=== PATIENT | female | born 1935 | race Caucasian/White ===

== ENCOUNTER 2019-01-24 18:15 | Inpatient (IN) | payer MEDICARE, MEDICAID ==
[~2019-01-24] VITALS: Ht 157.5 cm; Wt 109.0 kg
[~2019-01-24 18:15] MED LIST: CARV-50 PO; FURO-150 PO; POTA99TA15 PO
[2019-01-24 20:16] LABS: BASOPHILS # (AUTO) 0.1 X10'3 (0-0.2); BASOPHILS % (AUTO) 0.4 % (0-1); EOSINOPHILS % (AUTO) 0.1 % (0-6); HEMOGLOBIN 16.1 g/dl (12.0-16.0); LYMPHOCYTES # (AUTO) 0.7 X10'3 (1.1-4.8); MEAN CORPUSCULAR HGB CONC 33.6 g/dL (33.0-36.5); MEAN PLATELET VOLUME 10.6 FL (7.4-10.4); MONOCYTES # (AUTO) 1.7 X10'3 (0-0.9); MONOCYTES % (AUTO) 9.9 % (2-12); NEUTROPHILS # (AUTO) 14.4 X10'3 (1.8-7.7); NEUTROPHILS % (AUTO) 85.6 % (42-75); PLATELET COUNT 148 X10'3 (140-440); RED BLOOD COUNT 5.05 X10'6 (4.20-5.60); RED CELL DISTRIBUTION WIDTH 14.6 % (11.5-14.5); WHITE BLOOD COUNT 16.8 X10'3 (4.5-11.0)
[2019-01-24 20:35] LABS: ALANINE AMINOTRANSFERASE 25 U/L (12-78); ALBUMIN 3.2 G/DL (3.4-5.0); ALBUMIN/GLOBULIN RATIO 0.9 (1.1-1.5); ALKALINE PHOSPHATASE 86 IU/L (46-116); ANION GAP 8 (8-16); ASPARTATE AMINO TRANSFERASE 21 U/L (10-37); BLOOD UREA NITROGEN 32 MG/DL (7-18); BUN/CREATININE RATIO 29.4 (6.6-38.0); CALCIUM 9.3 MG/DL (8.5-10.1); CHLORIDE 107 MMOL/L (99-107); CREATININE 1.09 MG/DL (0.40-0.90); GLUCOSE 137 MG/DL (70-104); POTASSIUM 3.9 MMOL/L (3.5-5.1); SODIUM 143 MMOL/L (135-145); TOTAL CARBON DIOXIDE 28.3 MMOL/L (24-32); TOTAL PROTEIN 6.8 G/DL (6.4-8.2); eGFR 48 ML/MIN
[2019-01-24 20:37] LABS: CREATINE KINASE 368 U/L (26-192); MAGNESIUM 1.9 MG/DL (1.5-2.4); PHOSPHORUS 2.5 MG/DL (2.3-4.5)
[2019-01-24 20:42] LABS: CLARITY,URINE CLOUDY (Clear); COLOR,URINE YELLOW (Yellow); GLUCOSE, URINE NEGATIVE (Neg); KETONES,URINE TRACE mg/dl (Neg); LEUKOCYTE ESTERASE ,URINE TRACE (Neg); NITRITES, URINE POSITIVE (Neg); OCCULT BLOOD,URINE TRACE-INTACT (Neg); PROTEIN,URINE 100 mg/dl (Neg)
[2019-01-24 20:44] LABS: UA COLLECTION TYPE CLN CATCH MIDSTREAM
[2019-01-24] MEDS ORDERED: CefTRIAXone/D5W-Rocephin 1gm 50 ML IV ONE (20:45)
[2019-01-24] MEDS ORDERED: normal saline 1000ML IV soln IVB ONE (20:45)
[2019-01-24] MEDS ORDERED: aspirin 81mg tab.chew PO ONE (20:50)
[2019-01-24 21:02] LABS: BACTERIA,URINE 3+ /HPF (Neg); MUCUS STRANDS MANY /LPF (Neg); RBC,URINE 0-2 /HPF (0-2); SQUAMOUS EPITHELIAL CELL,UR MANY /LPF (FEW); WBC,URINE 0-4 /HPF (0-4)
[2019-01-24] MEDS ORDERED: magnesium Cl slow-release 64mg tablet PO PRN (21:05)
[2019-01-24] MEDS ORDERED: potassium Cl 20 mEq SR tablet PO PRN ×2 (21:05)
[2019-01-24] MEDS ORDERED: magnesium 4gm in 100ml NS 100 ML IV PRN (21:05)
[2019-01-24] MEDS ORDERED: magnesium 2GM in 50ml NS 50 ML IV PRN (21:05)
[2019-01-24] MEDS ORDERED: potassium CL 10mEq/100ml bag 100 ML IV PRN ×2 (21:05)
[2019-01-24] MEDS ORDERED: acetaminophen 325mg tablet PO PRN (21:05)
[2019-01-24] MEDS ORDERED: NO HOME MEDS (21:19)
[2019-01-24 21:29] LABS: CLARITY,URINE CLEAR (Clear); COLOR,URINE AMBER (Yellow); GLUCOSE, URINE NEGATIVE (Neg); KETONES,URINE TRACE mg/dl (Neg); LEUKOCYTE ESTERASE ,URINE NEGATIVE (Neg); NITRITES, URINE NEGATIVE (Neg); OCCULT BLOOD,URINE NEGATIVE (Neg); PROTEIN,URINE 30 mg/dl (Neg); UROBILINOGEN,URINE 0.2 E.U/dL (0.2-1.0)
[2019-01-24 21:30] LABS: UA COLLECTION TYPE STRAIGHT CATH
[2019-01-24 21:36] LABS: BACTERIA,URINE NONE SEEN /HPF (Neg); MUCUS STRANDS MANY /LPF (Neg); RBC,URINE 0-2 /HPF (0-2); SQUAMOUS EPITHELIAL CELL,UR NONE SEEN /LPF (FEW); TRANSITIONAL EPI CELLS,URINE FEW /HPF; WBC,URINE 0-4 /HPF (0-4)
[2019-01-24 22:35] VITALS: BP 154/79
[2019-01-24 23:20] LABS: GIANT PLATELET FEW; PLATELET ESTIMATE NORMAL
[2019-01-25] MEDS: normal saline 1000ml 1,000 ML IV SCH ×3 (01:10→16:35)
[2019-01-25 02:06] LABS: ALBUMIN 3.1 G/DL (3.4-5.0); ANION GAP 5 (8-16); BLOOD UREA NITROGEN 27 MG/DL (7-18); CHLORIDE 109 MMOL/L (99-107); GLUCOSE 125 MG/DL (70-104); MAGNESIUM 1.9 MG/DL (1.5-2.4); POTASSIUM 3.7 MMOL/L (3.5-5.1); SODIUM 145 MMOL/L (135-145); TOTAL CARBON DIOXIDE 30.6 MMOL/L (24-32); TROPONIN I 0.22 NG/ML (0.0-0.05); eGFR 60 ML/MIN
--- NOTE | 2019-01-25 03:45 | NUR ---
PT HAS BILATERAL LOWER EXTREMITY EDEMA WITH REDNESS AND SWELLING. POSSIBLE CELLULITIS. PT REFUSED SCD'S R/T IT IS TOO PAINFUL. Addendum: 01/25/19 at 0346 by Tania Goyal RN Amended: Links added.
--- NOTE | 2019-01-25 04:20 | NUR ---
NOTIFY DR REILLY VIA SPOCK, THAT PT TROPONINS TRENDING UP; 0.09, 0.19, 0.22.
--- NOTE | 2019-01-25 05:12 | NUR ---
notified of elevated troponin: 0.09.0.19, 0.22. I also informed her that director telehealth has patient aflutter/afib but patient has no history of this and the ekg on chart has ST. She ordered an ekg now.
--- NOTE | 2019-01-25 05:35 | NUR ---
EKG PERFORMED ORDERED BY MD. EKG STATES NORMAL SINUS RHYTHM , LEFT AXIS DEVIATION, LOW VOLTAGE QRS.
[2019-01-25 06:00] VITALS: BP 153/78
--- NOTE | 2019-01-25 06:08 | NUR ---
DR REILLY NEW ORDER TO REDUCE NS TO TKO.
--- NOTE | 2019-01-25 06:27 | NUR ---
REPORT GIVEN TO ZHEN NULL.
--- NOTE | 2019-01-25 06:30 | NUR ---
Problems reprioritized. Patient report given, questions answered & plan of care reviewed with ZHEN Marin. .
[2019-01-25 07:05] LABS: BASOPHILS % (AUTO) 0.3 % (0-1); EOSINOPHILS # (AUTO) 0.1 X10'3 (0-0.9); EOSINOPHILS % (AUTO) 0.9 % (0-6); HEMOGLOBIN 14.2 g/dl (12.0-16.0); LYMPHOCYTES # (AUTO) 0.8 X10'3 (1.1-4.8); LYMPHOCYTES % (AUTO) 8.2 % (21-51); MEAN CORPUSCULAR HEMOGLOBIN 32.2 PG (27.0-31.0); MEAN CORPUSCULAR HGB CONC 33.7 g/dL (33.0-36.5); MEAN CORPUSCULAR VOLUME 95.4 FL (78-98); MEAN PLATELET VOLUME 11.8 FL (7.4-10.4); MONOCYTES # (AUTO) 1.2 X10'3 (0-0.9); MONOCYTES % (AUTO) 11.8 % (2-12); NEUTROPHILS # (AUTO) 7.9 X10'3 (1.8-7.7); NEUTROPHILS % (AUTO) 78.8 % (42-75); PLATELET COUNT 121 X10'3 (140-440); RED CELL DISTRIBUTION WIDTH 14.7 % (11.5-14.5); WHITE BLOOD COUNT 10.1 X10'3 (4.5-11.0)
[2019-01-25] MEDS: K and/or MAG REPLACEMENT MC SCH (08:00)
[2019-01-25] MEDS: CefTRIAXone/D5W-Rocephin 1gm 50 ML IV SCH (09:51)
[2019-01-25 10:00] VITALS: BP 131/89
--- NOTE | 2019-01-25 10:30 | NUR ---
Dr. Fernandez made rounds on this patient. Dr. Fernandez discussed pts current code status upon admission to the hospital which was full code. Dr. Fernandez discussed options related to code status. Pt is alert & oriented. Pt was able to to make an informed decision that myself and witnessed that she would like to be a "Do Not Resuscitate." Dr. Fernandez will change her code status.
[2019-01-25] MEDS ORDERED: fluconazole 150mg tablet PO ONE (12:05)
[2019-01-25] MEDS: nystatin 15 GM powder TP SCH ×2 (13:00→20:23)
[2019-01-25] MEDS: lactose-reduced food (Ensure Enlive) - 237ml bottle PO SCH ×2 (13:00→18:00)
[2019-01-25 18:00] VITALS: BP 141/86
[2019-01-25] MEDS: famotidine 20mg tablet PO SCH (20:23)
[2019-01-25] MEDS: lactobacillus rhamnosus 10,000 MMU CELLS/CAPSULE PO SCH (20:23)
[2019-01-25 22:00] VITALS: BP 135/80
[2019-01-26] MEDS: normal saline 1000ml 1,000 ML IV SCH ×2 (01:25→08:43)
--- NOTE | 2019-01-26 03:23 | NUR ---
Telemetry 24hrs monitoring is complete. Tele d/c'd .
--- NOTE | 2019-01-26 04:47 | NUR ---
wick in place, pt states she does not need to void, 250 urine output in canister, bed is dry.
--- NOTE | 2019-01-26 06:09 | NUR ---
REPORT GIVEN TO ZHEN NULL.
[2019-01-26 06:40] LABS: BASOPHILS % (AUTO) 0.4 % (0-1); EOSINOPHILS # (AUTO) 0.4 X10'3 (0-0.9); HEMOGLOBIN 13.8 g/dl (12.0-16.0); LYMPHOCYTES # (AUTO) 1.2 X10'3 (1.1-4.8); LYMPHOCYTES % (AUTO) 12.8 % (21-51); MEAN CORPUSCULAR HEMOGLOBIN 31.4 PG (27.0-31.0); MEAN CORPUSCULAR HGB CONC 32.9 g/dL (33.0-36.5); MEAN CORPUSCULAR VOLUME 95.5 FL (78-98); MEAN PLATELET VOLUME 11.4 FL (7.4-10.4); MONOCYTES % (AUTO) 10.9 % (2-12); NEUTROPHILS # (AUTO) 6.9 X10'3 (1.8-7.7); NEUTROPHILS % (AUTO) 71.9 % (42-75); PLATELET COUNT 103 X10'3 (140-440); RED CELL DISTRIBUTION WIDTH 14.8 % (11.5-14.5); WHITE BLOOD COUNT 9.5 X10'3 (4.5-11.0)
[2019-01-26 06:47] VITALS: BP 140/60
[2019-01-26 06:56] LABS: ALBUMIN 2.2 G/DL (3.4-5.0); ANION GAP 9 (8-16); BLOOD UREA NITROGEN 23 MG/DL (7-18); BUN/CREATININE RATIO 31.1 (6.6-38.0); CALCIUM 8.3 MG/DL (8.5-10.1); CHLORIDE 111 MMOL/L (99-107); CREATININE 0.74 MG/DL (0.40-0.90); GLUCOSE 114 MG/DL (70-104); MAGNESIUM 1.9 MG/DL (1.5-2.4); POTASSIUM 3.8 MMOL/L (3.5-5.1); SODIUM 143 MMOL/L (135-145); TOTAL CARBON DIOXIDE 23.4 MMOL/L (24-32); eGFR 75 ML/MIN
[2019-01-26] MEDS: K and/or MAG REPLACEMENT MC SCH (08:00)
[2019-01-26] MEDS ORDERED: emollient combination-Eucerin 250 ML LOTION TP SCH (08:00)
[2019-01-26 08:16] LABS: LARGE PLATELETS FEW; PLATELET ESTIMATE DECREASED
[2019-01-26] MEDS: lactobacillus rhamnosus 10,000 MMU CELLS/CAPSULE PO SCH ×2 (08:46→20:38)
[2019-01-26] MEDS: CefTRIAXone/D5W-Rocephin 1gm 50 ML IV SCH (08:46)
[2019-01-26] MEDS: nystatin 15 GM powder TP SCH ×3 (08:53→20:38)
[2019-01-26] MEDS: lactose-reduced food (Ensure Enlive) - 237ml bottle PO SCH ×3 (08:53→18:00)
[2019-01-26 10:18] VITALS: BP 123/81
[2019-01-26 18:00] VITALS: BP 144/87
--- NOTE | 2019-01-26 18:29 | NUR ---
Problems reprioritized. Patient report given, questions answered & plan of care reviewed with ZHEN Marin.
[2019-01-26] MEDS: famotidine 20mg tablet PO SCH (20:38)
[2019-01-26 22:00] VITALS: BP 135/91
[2019-01-27] MEDS: normal saline 1000ml 1,000 ML IV SCH (00:26)
--- NOTE | 2019-01-27 01:42 | NUR ---
new orders for wound care and skin care. Plan for tx to begin in dayshift 01/27/19. Addendum: 01/27/19 at 0144 by Tania Goyal RN Amended: Links added.
[2019-01-27 05:40] LABS: BASOPHILS # (AUTO) 0.1 X10'3 (0-0.2); BASOPHILS % (AUTO) 1.4 % (0-1); EOSINOPHILS # (AUTO) 0.5 X10'3 (0-0.9); EOSINOPHILS % (AUTO) 6.2 % (0-6); HEMATOCRIT 44.6 % (35.0-45.0); HEMOGLOBIN 14.7 g/dl (12.0-16.0); LYMPHOCYTES # (AUTO) 1.5 X10'3 (1.1-4.8); LYMPHOCYTES % (AUTO) 17.2 % (21-51); MEAN CORPUSCULAR HEMOGLOBIN 31.5 PG (27.0-31.0); MEAN CORPUSCULAR VOLUME 95.3 FL (78-98); MONOCYTES # (AUTO) 0.9 X10'3 (0-0.9); MONOCYTES % (AUTO) 10.2 % (2-12); NEUTROPHILS # (AUTO) 5.6 X10'3 (1.8-7.7); PLATELET COUNT 114 X10'3 (140-440); RED BLOOD COUNT 4.68 X10'6 (4.20-5.60); RED CELL DISTRIBUTION WIDTH 14.8 % (11.5-14.5); WHITE BLOOD COUNT 8.7 X10'3 (4.5-11.0)
--- NOTE | 2019-01-27 05:56 | NUR ---
REPORT GIVEN TO ZHEN NULL.
[2019-01-27 06:00] VITALS: BP 163/95
[2019-01-27 06:01] LABS: ALBUMIN 2.3 G/DL (3.4-5.0); ANION GAP 4 (8-16); BLOOD UREA NITROGEN 17 MG/DL (7-18); BUN/CREATININE RATIO 20.7 (6.6-38.0); CALCIUM 9.2 MG/DL (8.5-10.1); CHLORIDE 110 MMOL/L (99-107); CREATININE 0.82 MG/DL (0.40-0.90); GLUCOSE 111 MG/DL (70-104); POTASSIUM 4.1 MMOL/L (3.5-5.1); SODIUM 144 MMOL/L (135-145); TOTAL CARBON DIOXIDE 29.6 MMOL/L (24-32); eGFR 66 ML/MIN
[2019-01-27] MEDS: K and/or MAG REPLACEMENT MC SCH (08:00)
[2019-01-27] MEDS: nystatin 15 GM powder TP SCH (08:00)
[2019-01-27] MEDS: lactose-reduced food (Ensure Enlive) - 237ml bottle PO SCH ×2 (08:00→10:59)
[2019-01-27] MEDS: lactobacillus rhamnosus 10,000 MMU CELLS/CAPSULE PO SCH (09:35)
[2019-01-27] MEDS: CefTRIAXone/D5W-Rocephin 1gm 50 ML IV SCH (09:37)
[2019-01-27 10:00] VITALS: BP 140/91
[2019-01-27] MEDS ORDERED: VANCOMYCIN LEVEL IV ONE (10:30)
--- NOTE | 2019-01-27 16:30 | NUR ---
Received discharge orders for pt to transfer to [facility] later today. Informed pt transfer time is 1630 today. Pt and son at bedside at this time. IV dc'd from [facility] with cannula intact. No redness/swelling at IV site. (1629) Dilma Cargo arrived to [facility]. Pt transferred via bed to a guerney. Tolerated well. Report called to the facility.
== END 2019-01-27 16:35 | DRG 872 ==
LOC: ER 18:16 → ORTHO 4S 21:01
PROVIDERS: ADMIT Internal Medicine; ATTEND Hospitalist
DX: A41.9 Sepsis, unspecified organism (principal); L03.116 Cellulitis of left lower limb; N30.00 Acute cystitis without hematuria; L03.115 Cellulitis of right lower limb; I50.30 Unspecified diastolic (congestive) heart failure; I11.0 Hypertensive heart disease with heart failure; E86.0 Dehydration; W01.0XXA Fall on same level from slipping, tripping and stumbling without subsequent striking against object, initial encounter; R29.6 Repeated falls; Z66 Do not resuscitate; Z88.2 Allergy status to sulfonamides; Z90.710 Acquired absence of both cervix and uterus; Z99.3 Dependence on wheelchair; Y93.89 Activity, other specified; Y92.89 Other specified places as the place of occurrence of the external cause; Y99.8 Other external cause status; Z79.899 Other long term (current) drug therapy
CPT/HCPCS: 36415; 71045; 80048; 80053; 81001; 82550; 83605; 83735; 83880; 84100; 84145; 84484; 85025; 87040; 87081; 87088; 93005; 93306; 96365; 97110; 97162; 97530; 97535; 99285; G0378; J0696; J3370; J7030

== ENCOUNTER 2022-01-29 17:31 | Emergency (ER) | payer MEDICARE, MEDICAID ==
[~2022-01-29] VITALS: Ht 165.1 cm; Wt 9.1 kg
[~2022-01-29 17:31] MED LIST changes: -CARV-50 PO; -FURO-150 PO; +NO HOME MEDS; -POTA99TA15 PO
[2022-01-29 19:44] VITALS: BP 106/83
== END 2022-01-29 22:21 | disposition home or self-care (01) ==
LOC: ER 17:32
DX: M47.816 Spondylosis without myelopathy or radiculopathy, lumbar region (principal); M54.59 Other low back pain; I11.0 Hypertensive heart disease with heart failure; Z88.2 Allergy status to sulfonamides; Z79.899 Other long term (current) drug therapy; W19.XXXA Unspecified fall, initial encounter; Y92.89 Other specified places as the place of occurrence of the external cause; Y99.8 Other external cause status
CPT/HCPCS: 72131; 99284